=== PATIENT | male | born 1995 | race Two or more races ===

== ENCOUNTER 2019-11-10 11:23 | Emergency (ER) | payer OTHER ==
[~2019-11-10] VITALS: Ht 180.3 cm; Wt 118.3 kg
--- NOTE | 2019-11-10 12:05 | RAD ---
Right ankle 3 views. HISTORY: Twisted ankle, deformity, pain 3 views were taken of the right ankle. There is a displaced fracture of the distal third of the fibula. There is lateral posterior dislocation of the talus relative to the tibia. A medial malleolus fracture is not identified but there is ligamentous disruption medially. IMPRESSION: 1. Angulated displaced fracture of the distal fibula. 2. Posterior lateral displacement of the talus relative to the tibia with ligamentous disruption medially. Electronically signed by: Donavon Chapman MD (11/10/2019 12:02 PM) [id number]
[2019-11-10] MEDS ORDERED: ONDANSETRON PF 4 MG/2 ML VIAL. IVP ONE (12:15)
[2019-11-10] MEDS ORDERED: PROPOFOL 20 ML IV ONE (12:15)
--- NOTE | 2019-11-10 12:16 | PHYS DOC ---
Adult General Chief Complaint Chief Complaint: ANKLE PROBLEM HPI HPI Patient is a 24-year-old male who presents with complaint of right ankle pain/injury. Patient states that he was getting up out of chair and actually stepped onto another chair, causing him to lose his footing. Patient states that he then twisted his ankle and has not been able to bear weight since the injury. Patient rates pain at a 9 out of 10. Injury occurred just prior to arrival.[] Review of Systems Review of Systems Constitutional: Denies fever or chills [] Respiratory: Denies cough or shortness of breath [] Cardiovascular: No additional information not addressed in HPI [] Musculoskeletal: Positive right ankle pain[] Integument: Denies rash or skin lesions [] All other systems were reviewed and found to be within normal limits, except as documented in this note. Current Medications Current Medications Current Medications Medications (Trade) Dose Ordered Sig/Laith Start Time Stop Time Status Last Admin Dose Admin Fentanyl Citrate (Fentanyl 2ml Vial) 50 mcg 1X ONCE 11/10/19 12:15 11/10/19 12:16 11/10/19 12:04 50 MCG Ondansetron HCl (Zofran) 4 mg 1X ONCE 11/10/19 12:15 11/10/19 12:16 11/10/19 12:05 4 MG Allergies Allergies Allergies Coded Allergies Type Severity Reaction Last Updated Verified No Known Drug Allergies 11/10/19 No Physical Exam Physical Exam Constitutional: Well developed, well nourished, no acute distress, non-toxic appearance. [] HENT: Normocephalic, atraumatic, bilateral external ears normal, oropharynx moist, no oral exudates, nose normal. [] Eyes: PERRLA, EOMI, conjunctiva normal, no discharge. [] Neck: Normal range of motion, no tenderness, supple, no stridor. [] Cardiovascular:Heart rate regular rhythm, no murmur [] Lungs & Thorax: Bilateral breath sounds clear to auscultation [] Abdomen: Bowel sounds normal, soft, no tenderness. [] Skin: Warm, dry, no erythema, no rash. [] Extremities: Examination of right ankle demonstrates deformity with bimalleolar tenderness to palpation and ecchymosis. [] Neurologic: Alert and oriented X 3, no focal deficits noted. [] Current Patient Data Vital Signs Vital Signs Date Time Temp Pulse Resp B/P (MAP) Pulse Ox O2 Delivery O2 Flow Rate FiO2 11/10/19 11:23 98.0 67 18 132/61 (84) 98 Room Air EKG EKG [] Radiology/Procedures Radiology/Procedures [] Course & Med Decision Making Course & Med Decision Making Pertinent Labs and Imaging studies reviewed. (See chart for details) Patient moved to room upon arrival was evaluated being ER medical staff after which an x-ray of the ankle was obtained. X-ray demonstrates an angulated displaced fracture of the distal fibula with lateral displacement of the talus relative to the tibia with ligamentous disruption Patient moved from fast track into trauma room and IV established. Patient given IV fentanyl for management of pain along with Zofran. Reduction by me: Anesthesia: Propofol Location: Right ankle Technique: Gentle traction and manipulation Results: [facility] of normal anatomic positioning Neurovascularly intact post procedure. A stirrup splint has been placed by ER medical and assisted by ER physician. Good fit and alignment is noted post splinting. Splint Assessment: Neurovascularly intact post splint placement with good fit. Dragon Disclaimer Dragon Disclaimer This electronic medical record was generated, in whole or in part, using a voice recognition dictation system. RISKS/ALTERNATIVES Risks/Alternatives Risks and alternatives of this type of sedation and procedure discussed with: RISK/ALTERNATIVES DISCUSSED: Patient H & P ON CHART H & P H & P on chart and reviewed for co-morbid conditions and appropriate labs. H&P ON CHART: Yes STATUS PREG STATUS ASSESSED: N/A MEDS/ALLERGIES REVIEWED Meds/Allergies Reviewed Medications and Allergies including time and route of recently administered narcotics and sedatives. MEDS/ALLERGIES REVIEWED: Yes ASA RATING ASA RATING: I AIRWAY ASSESSMENT Airway Assessment Airway patency, oral function limitations, presence of caps, crowns, dentures, partials, and ability to extend neck assessed. AIRWAY ASSESSMENT: Yes MALLAMPATI SCORE MALLAMPATI SCORE: II PRE-SEDATION ASSESSMENT PRE-SEDATION PHYSICAL: Yes Departure Departure: Impression: Primary Impression: Closed right ankle fracture Disposition: 01 HOME, SELF-CARE Condition: STABLE Referrals: PCP,NO (PCP) MADDIE AREVALO II, MD Patient Instructions: Ankle Fracture, Form - Excuse from Work, School, or Physical Activity Additional Instructions: Remain weightbearing on right ankle. Call to schedule follow-up appointment with orthopedist for next week. Scripts Diclofenac Sodium (DICLOFENAC SODIUM) 50 Mg Tablet. 1 TAB PO BID PRN for PAIN, #20 TAB Prov: KYA BONILLA Jr. DO 11/10/19 Oxycodone Hcl/Acetaminophen (PERCOCET 7.5-325 MG TABLET ) 1 Each Tablet 1 TAB PO PRN QID PRN for PAIN MDD 4 Tablet(s) for 5 Days, #20 TAB 0 Refills Prov: KYA BONILLA Jr. DO 11/10/19 Problem Qualifiers Primary Impression: Closed right ankle fracture Encounter type: initial encounter Qualified Codes: S82.891A - Other fracture of right lower leg, initial encounter for closed fracture KYA BONILLA Jr. DO Nov 10, 2019 12:16
[2019-11-10] MEDS ORDERED: IV NORMAL SALINE 1,000ML 1,000 ML IV ONE (13:00)
--- NOTE | 2019-11-10 13:15 | RAD ---
ANKLE RIGHT 3V Clinical Indication: Post reduction. Comparison: Right ankle, 3 views, earlier same day. Findings: Cast material overlies the ankle. The tibiotalar articulation is significantly improved post reduction. The oblique longitudinal distal fibular fracture alignment is also significantly improved. Overriding of fracture fragments and angulation is no longer seen. The distal fracture fragment is slightly posteriorly displaced. Bones of the foot unremarkable. Limited evaluation of the soft tissues. IMPRESSION: Alignment is significantly improved post reduction. Electronically signed by: Alexandro Perry MD (11/10/2019 1:12 PM) [id number]
[2019-11-10 13:20] VITALS: BP 108/70
[2019-11-10] MEDS ORDERED: OXYC1TAB19 PO (13:42)
[2019-11-10] MEDS ORDERED: DICL50TA4 PO (13:42)
== END 2019-11-10 13:55 | disposition home or self-care (01) ==
LOC: ER 11:23
DX: S93.04XA Dislocation of right ankle joint, initial encounter (principal); S82.831A Other fracture of upper and lower end of right fibula, initial encounter for closed fracture; X50.1XXA Overexertion from prolonged static or awkward postures, initial encounter; Y93.89 Activity, other specified; Y92.89 Other specified places as the place of occurrence of the external cause; Y99.8 Other external cause status
CPT/HCPCS: 27788; 27840; 73610; 99285; J2405; J2704; J3010; J7030